=== PATIENT | male | born 1940 | race Caucasian/White ===

== ENCOUNTER 2019-07-09 08:54 | Day surgery (SDC) | payer MEDICARE, OTHER ==
[2019-07-09] MEDS ORDERED: Lactated Ringers 1,000 ML IV ONE (09:29)
--- NOTE | 2019-07-09 09:44 | HP ---
DATE OF SURGERY: 07/09/2019 HISTORY OF PRESENT ILLNESS: The patient is a 79 year-old with last colonoscopy years ago and had some polyps. History of positive Cologuard. No gross bloody stools. No pain or change in bowel movements. Family history I think he said negative for colon cancer if I remember right. PAST MEDICAL HISTORY: History of hyperlipidemia, gout, hypertension and some fatigue in the past. PAST SURGICAL HISTORY: Knee replacement in the past. Melanoma excision. MEDICATIONS: Tamsulosin, Enalapril, Triamterene, hydrochlorothiazide, Nifedipine, Allopurinol, atorvastatin, gabapentin. ALLERGIES: NKDA. FAMILY HISTORY: Negative in regards to this problem. SOCIAL HISTORY: No smoking or alcohol abuse. REVIEW OF SYSTEMS: Fourteen systems reviewed. No chest pain or palpitations. Other systems negative or noncontributory as above and per preadmission questionnaire. PHYSICAL EXAMINATION: GENERAL: No acute distress. HEENT: Sclerae nonicteric. NECK: No JVD. CHEST: Equal excursion, nonlabored breathing. CVS: Regular rate and rhythm. ABDOMEN: Soft. No peritoneal signs. EXTREMITIES: No significant edema. NEURO: Alert, oriented, moving extremities symmetrically. No gross motor deficits noted. RECTAL: Deferred timed to endoscopy exam. IMPRESSION: History of polyp years ago. He is in need of follow up screening colonoscopy. There is a question whether he had a recent positive Cologuard as well. Either way he has not had one in years with polyps in the past. He is in need of screening colonoscopy. The risks and benefits explained in detail but not limited to bleeding or infection, risk of bowel injury or perforation possibly requiring open procedure, risk of missed or nondiagnosis or incomplete exam possibly requiring barium enema, other studies or procedures, general risk of anesthesia or sedation, risk of bowel prep but not limited to, possibility of inability to determine the etiology of what caused his test to be positive. He understands all of the above as well as bowel prep and risk of sedation but not limited to, will proceed with outpatient screening colonoscopy under MAC anesthesia.
[2019-07-09] MEDS ORDERED: Lactated Ringers 1,000 ML IV SCH (10:00)
[2019-07-09] MEDS ORDERED: DIPRIVAN 200 MG/20 ML IV ONE (12:27)
[2019-07-09 13:39] VITALS: O2SAT 98
[2019-07-09 13:56] VITALS: BP 115/61; PULSE 66
--- NOTE | 2019-07-10 09:32 | OP ---
SURGERY DATE/TIME: 07/09/2019 1229 PREOPERATIVE DIAGNOSES: 1) History of polyps. 2) Need for screening colonoscopy. 3) History of positive Cologuard. POSTOPERATIVE DIAGNOSES: 1) Polyps. 2) Diverticulosis. 3) Fair bowel prep. 4) Small internal hemorrhoids. PROCEDURES: 1) Colonoscopy to terminal ileum. 2) Retrograde ileoscopy. 3) Hot biopsy removal of sigmoid colon polyp. 4) Hot biopsy removal of another six small early polyps versus hyperplastic lesion sigmoid colon. 5) Hot biopsy removal of small rectal polyps versus hyperplastic lesion x2. SURGEON: Dr. Jasper Romero. ANESTHESIA: MAC. ESTIMATED BLOOD LOSS: Minimal. INDICATIONS: As noted above. Risks and benefits explained in detail but not limited to and consent obtained. DESCRIPTION OF PROCEDURE AND FINDINGS: The patient is taken to the endoscopy room. MAC anesthesia introduced. After official time out and no disagreement with planned procedure, digital rectal exam did not reveal any rectal masses. Video colonoscope inserted and passed up through the distal left colon, had a little pigs feet cleaner prep. There was a little bit of semisolid liquidy stool in the mid portion proximal colon slightly limiting the exam for very tiny lesions. The scope is slowly and carefully navigated around to the cecum. Appendiceal orifice and valve well visualized. Scope passed up the terminal ileum. Retrograde ileoscopy performed and grossly unremarkable. There was a visible pill sitting in the lumen of the ileum. The scope was then carefully withdrawn over the next 14 minutes. He had diverticulosis in the left colon. There was a small adenomatous appearing polyp removed with hot biopsy forceps in the sigmoid colon. There were about six other tiny early polyps versus hyperplastic lesion removed with hot biopsy forceps with brief bursts of cautery. Good hemostasis noted. Otherwise a couple little small early polyps versus hyperplastic lesion in the rectum removed with hot biopsy forceps. There were no signs of any other large polyps, masses or obstructing lesions. He did have some small internal hemorrhoids. The scope is withdrawn. The patient tolerated the procedure well. There were no immediate complications. Findings will be discussed with the family if available in the waiting room.
== END 2019-07-09 13:55 | disposition home or self-care (01) ==
LOC: SDC 08:54
PROVIDERS: ATTEND Surgery
DX: Z12.11 Encounter for screening for malignant neoplasm of colon (principal); D12.5 Benign neoplasm of sigmoid colon; D12.8 Benign neoplasm of rectum; Z86.010 Personal history of colon polyps; K57.30 Diverticulosis of large intestine without perforation or abscess without bleeding; K64.8 Other hemorrhoids
CPT/HCPCS: 88305; 99100; J2704

== ENCOUNTER 2021-12-18 12:41 | Emergency (ER) | payer MEDICARE, OTHER | END 2021-12-18 13:21 | disposition left against medical advice (07) | LOC: ED 12:41 | DX: Z53.21 Procedure and treatment not carried out due to patient leaving prior to being seen by health care provider (principal) ==

== ENCOUNTER 2022-03-01 08:58 | Emergency (ER) | payer MEDICARE, OTHER ==
--- NOTE | 2022-03-01 09:39 | ERPHSYRPT ---
- History of Present Illness Source: patient Patient Subjective Stated Complaint: HTN onset waking up this morning Triage Nursing Assessment: pt to ED c/o HTN that he noticed this morning. "I take something for it but it doesnt seem to be working anymore." rates 6/10 SAENZ at this time. A&Ox3. ambulatory with no assistance. pt report BP reading 200/100 at home this am. 186/84 on arrival to ED. Physician History: 81 yo wm w increased BP upon awakening this morning. He has a frontal SAENZ which is dull and rated 6/10 on scale. Pt has no focal weakness. Chest pain/nausea/vo miting/dyspnea/fever are all denied. He has a long h/o HTN and is treated by Dr. Mckeon. Pt also complains of chronic L lateral rib pain. Trauma/cough/fever denied. Timing/Duration: today Severity: mild Modifying Factors: Improves With: nothing Associated Symptoms: denies symptoms, headaches Allergies/Adverse Reactions: No Known Drug Allergies Allergy (Verified 03/01/22 09:13) Home Medications: Atorvastatin Calcium [Lipitor] 20 mg PO DAILY 06/28/19 [History] Enalapril Maleate 10 mg [Vasotec 10 MG] 10 mg PO DAILY 06/28/19 [History] Gabapentin [Neurontin] 300 mg PO TID 06/28/19 [History] Nifedipine [Nifedipine ER] 90 mg PO DAILY 06/28/19 [History] Tamsulosin HCl 0.4 mg [Flomax 0.4 MG] 0.4 mg PO DAILY 06/28/19 [History] Triamterene/Hydrochlorothiazid [Triamterene-Hctz 75-50 mg Tab] 1 each PO DAILY 06/28/19 [History] Acetaminophen 500 mg [Tylenol Extra Strength 500 mg] 1,000 mg PO UD PRN 07/09/19 [History] Multivitamin [Multivitamins] 1 each PO DAILY 07/09/19 [History] Thiamine HCl 100 mg [Vitamin B-1 100 mg] 100 mg PO DAILY 07/09/19 [History] Allopurinol 100 mg [Zyloprim 100 mg] 100 mg PO DAILY 03/01/22 [History] Clonidine HCl 0.1 mg [Clonidine 0.1 mg Tablet] 0.1 mg PO BID 03/01/22 [History] Hx Tetanus, Diphtheria Vaccination/Date Given: Yes Hx Influenza Vaccination/Date Given: Yes Hx Pneumococcal Vaccination/Date Given: Yes Immunizations Up to Date: Yes Travel Risk - International Travel Have you traveled outside of the country in past 3 weeks: No - Coronavirus Screening Are you exhibiting any of the following symptoms?: No Close contact with a COVID-19 positive Pt in past 14-21 Days: No - Vaccine Status Have you recieved a Covid-19 vaccination: Yes 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: [employer] - Vaccination Dates Date of 2cond Vaccination (if applicable): 2020 - Review of Systems Constitutional: No Symptoms Eyes: No Symptoms Ears, Nose, & Throat: No Symptoms Respiratory: No Symptoms Cardiac: No Symptoms Abdominal/Gastrointestinal: No Symptoms Genitourinary Symptoms: No Symptoms Musculoskeletal: No Symptoms Skin: No Symptoms Neurological: No Symptoms, Headache Psychological: No Symptoms Endocrine: No Symptoms Hematologic/Lymphatic: No Symptoms Immunological/Allergic: No Symptoms - Past Medical History Pertinent Past Medical History: Yes Neurological History: No Pertinent History ENT History: Other Cardiac History: High Cholesterol, Hypertension, Other Respiratory History: No Pertinent History Endocrine Medical History: No Pertinent History Musculoskeletal History: Arthritis GI Medical History: No Pertinent History History: Other Psycho-Social History: No Pertinent History Male Reproductive Disorders: Prostate Problems Other Medical History: skin CA, sinus problems. hx heart murmur with no diff and not medicated - Past Surgical History Past Surgical History: Yes Neuro Surgical History: No Pertinent History Cardiac: No Pertinent History Respiratory: No Pertinent History Gastrointestinal: No Pertinent History, Hemorrhoidectomy Genitourinary: No Pertinent History Musculoskeletal: Orthopedic Surgery Male Surgical History: No Pertinent History Other Surgical History: emiliano knee replacements, sinus surgery - Social History Smoking Status: Current every day smoker Exposure to second hand smoke: No Drug Use: none Patient Lives Alone: No Significant Family History: no pertinent family hx - Nursing Vital Signs Nursing Vital Signs: Initial Vital Signs Temperature 97.2 F 03/01/22 09:14 Pulse Rate 56 L 03/01/22 09:14 Respiratory Rate 18 03/01/22 09:14 Blood Pressure 186/84 03/01/22 09:14 O2 Sat by Pulse Oximetry 100 03/01/22 09:14 Pain Scale Pain Intensity 6 Hypertensive/Claudio - Physical Exam General Appearance: no apparent distress Eye Exam: PERRL/EOMI, eyes nml inspection Ears, Nose, Throat Exam: normal ENT inspection, TMs normal, pharynx normal, moist mucous membranes Neck Exam: normal inspection, non-tender, supple, full range of motion, No meningismus, No mass, No Brudzinski, No Kernig's, No carotid bruit Respiratory Exam: normal breath sounds, lungs clear, airway intact Cardiovascular Exam: regular rate/rhythm, normal heart sounds, normal peripheral pulses, capillary refill <2 sec, No murmur Gastrointestinal/Abdomen Exam: soft, normal bowel sounds, No tenderness Back Exam: normal inspection, normal range of motion, No CVA tenderness, No vertebral tenderness Extremity Exam: normal inspection, normal range of motion Neurologic Exam: alert, oriented x 3, cooperative, clinical statistics manager II-XII nml as tested, normal mood/affect, nml cerebellar function, nml station & gait, sensation nml Skin Exam: normal color, warm, dry, No rash Lymphatic Exam: No adenopathy SpO2 Interpretation: normal SpO2: 100 O2 Delivery: Room Air - Course Nursing assessment & vital signs reviewed: Yes - CT Exams Chest CT Interpretation: Discussed w/radiologist (CT chest-COPD/Pulmonary fibrosis/8mm gallstone) Head CT Interpretation: Discussed w/radiologist (CT head-pansinusitis/Nothing acute) Ordered Tests: Active Orders 24 hr Category Date Time Status CHEST WITHOUT CONTRAST [CT] Stat Exams 03/01/22 09:37 Completed HEAD WITHOUT CONTRAST [CT] Stat Exams 03/01/22 09:37 Completed CBC W DIFF Stat Lab 03/01/22 10:22 Completed CMP Stat Lab 03/01/22 10:22 Completed TROPONIN Q4H Lab 03/01/22 10:22 Completed TROPONIN Q4H Lab 03/01/22 13:45 Ordered TROPONIN Q4H Lab 03/01/22 17:45 Ordered Medication Summary Discontinued Medications Generic Name Dose Route Start Last Admin Trade Name Freq PRN Reason Stop Dose Admin Ketorolac Tromethamine 15 mg 03/01/22 11:01 Ketorolac Tromethamine 30 Mg/Ml Inj IM 03/01/22 11:02 STAT ONE Lab/Rad Data: Laboratory Result Diagrams 03/01/22 10:22 03/01/22 10:22 Laboratory Results 10/03/01/22 03/01/22 Range/Units 10:22 10: 10: WBC 10.7 H (4.0-10.5) x10^3/uL RBC 4.36 (4.1-5.6) x10^6/uL Hgb 13.8 (12.5-18.0) g/dL Hct 43.4 (42-50) % MCV 99.5 (78-100) fL MCH 31.7 (26-32) pg MCHC 31.8 L (32-36) g/dL RDW 12.4 (11.5-14.0) % Plt Count 201 (150-450) x10^3/uL MPV 9.2 (7.5-11.0) fL Gran % 66.6 H (36.0-66.0) % Immature Gran % (Auto) 0.3 (0.00-0.4) % Nucleat RBC Rel Count 0.0 (0.00-0.1) % Eos # (Auto) 0.28 (0-0.5) x10^3/uL Immature Gran # (Auto) 0.03 (0.00-0.03) x10^3u/L Absolute Lymphs (auto) 2.53 (1.0-4.6) x10^3/uL Absolute Monos (auto) 0.66 (0.0-1.3) x10^3/uL Absolute Nucleated RBC 0.00 (0.00-0.01) x10^3u/L Lymphocytes % 23.7 L (24.0-44.0) % Monocytes % 6.2 (0.0-12.0) % Eosinophils % 2.6 (0.00-5.0) % Basophils % 0.6 (0.0-0.4) % Absolute Granulocytes 7.10 H (1.4-6.9) x10^3/uL Basophils # 0.06 (0-0.4) x10^3/uL Sodium 139 (137-145) mmol/L Potassium 3.9 (3.5-5.1) mmol/L Chloride 105 (98-107) mmol/L Carbon Dioxide 25 (22-30) mmol/L Anion Gap 12.3 (5-15) MEQ/L BUN 16 (9-20) mg/dL Creatinine 1.03 (0.66-1.25) mg/dL Estimated GFR > 60.0 ML/MIN Glucose 125 H (74-106) mg/dL Calcium 8.9 (8.4-10.2) mg/dL Total Bilirubin 0.60 (0.2-1.3) mg/dL AST 25 (17-59) U/L ALT 18 (0-50) U/L Alkaline Phosphatase 79 (38-126) U/L Troponin I < 0.012 (0.000-0.034) ng/mL Serum Total Protein 7.9 (6.3-8.2) g/dL Albumin 4.1 (3.5-5.0) g/dL - Progress Progress: improved Progress Note: 03/01/22 11:02 Pt's BP improved wo treatment 15mg IM Toradol Counseled pt/family regarding: lab results, diagnosis, need for follow-up, rad results - Departure Departure Disposition: Home Clinical Impression: Hypertension, Headache Condition: Stable Critical Care Time: No Referrals: ROMAN MCKEON MD [Primary Care Provider] - Follow up/PCP as directed Instructions: Malignant Hypertension (DC) Additional Instructions: Follow up with Dr. Mckeon in 1-2 days If systolic blood pressure greater than 180(Top number) or diastolic blood pressure greater than 100(bottom number) take an extra Clonidine tablet Return to ER for worsening headache or persistent blood pressure greater than 180/100
--- NOTE | 2022-03-01 10:06 | XRAY ---
Indication: Headache and hypertension. Multiple contiguous axial images obtained through the head without contrast. Comparison: None Age-appropriate global atrophy and moderate periventricular degenerative micro-ischemia bilaterally. No acute intracranial hemorrhage, abnormal extra-axial fluid collection, or mass effect. Fourth ventricle is midline without hydrocephalus. Bony calvarium intact. Near complete opacification of both ethmoid, both frontal, and right sphenoid sinuses with lesser degree of remaining paranasal sinuses. Mastoid air cells are clear. Impression: Nonacute senile brain. Incidental pansinusitis.
--- NOTE | 2022-03-01 10:10 | XRAY ---
Indication: Left chest pain. No known injury. Multiple contiguous axial images obtained through the chest without contrast. Comparison: None Diffuse pulmonary emphysema with moderate scattered fibrosis/scarring and subpleural cystic changes. A few tiny right lung calcified granulomas. No suspicious pulmonary mass, infiltrate, or effusion. Heart not enlarged with scattered coronary calcifications. Aorta is moderately arteriosclerotic without aneurysm. Small mediastinal and bilateral hilar calcified nodes. Small hiatal hernia. Bony thorax intact with osteopenia and mild degenerative changes throughout the spine. Limited upper abdomen demonstrates 8 mm gallstone and splenic calcified granuloma. Impression: 1. Diffuse pulmonary emphysema, scattered pulmonary fibrosis/scarring with subpleural cystic changes, hiatal hernia, chronic bony findings, subcentimeter gallstone, and old granulomatous disease. 2. Remaining CT chest without contrast exam is negative.
[2022-03-01 10:24] LABS: Basophil (Absolute #) 0.06 x10^3/uL (0-0.4); Eosinophil % 2.6 % (0.00-5.0); Eosinophil (Absolute #) 0.28 x10^3/uL (0-0.5); Hematocrit 43.4 % (42-50); Hemoglobin 13.8 g/dL (12.5-18.0); Lymphocyte (Absolute #) 2.53 x10^3/uL (1.0-4.6); Lymphocytes % 23.7 % (24.0-44.0); Mean Cell Volume 99.5 fL (78-100); Mean Corpuscular Hemoglobin 31.7 pg (26-32); Mean Corpuscular Hgb Concent. 31.8 g/dL (32-36); Mean Platelet Volume 9.2 fL (7.5-11.0); Monocyte (Absolute #) 0.66 x10^3/uL (0.0-1.3); Monocytes % 6.2 % (0.0-12.0); Neutrophil % 66.6 % (36.0-66.0); Platelet Count 201 x10^3/uL (150-450); Red Blood Count 4.36 x10^6/uL (4.1-5.6); Red Cell Distribution Width 12.4 % (11.5-14.0); White Blood Count 10.7 x10^3/uL (4.0-10.5)
[2022-03-01 10:41] LABS: ALBUMIN 4.1 g/dL (3.5-5.0); ALKALINE PHOSPHATASE 79 U/L (38-126); ANION GAP 12.3 MEQ/L (5-15); BLOOD UREA NITROGEN 16 mg/dL (9-20); CHLORIDE 105 mmol/L (98-107); Calcium 8.9 mg/dL (8.4-10.2); Carbon Dioxide 25 mmol/L (22-30); Creatinine 1 1.03 mg/dL (0.66-1.25); EST GLOMERULAR FILTRATION RATE > 60.0 ML/MIN; Glucose 125 mg/dL (74-106); Potassium 3.9 mmol/L (3.5-5.1); SGOT/AST 25 U/L (17-59); SGPT/ALT 18 U/L (0-50); SODIUM 139 mmol/L (137-145); Total Protein 7.9 g/dL (6.3-8.2)
[2022-03-01] MEDS ORDERED: TORAdol 30 mg Injection IM ONE (11:01)
[2022-03-01] MEDS ORDERED: TORAdol 30 mg Injection ONE (11:46)
[2022-03-01 11:54] VITALS: BP 155/91; PULSE 49; O2SAT 97
== END 2022-03-01 11:55 | disposition home or self-care (01) ==
LOC: ED 08:58
DX: I10 Essential (primary) hypertension (principal); R51.9 Headache, unspecified; R07.81 Pleurodynia; Z79.899 Other long term (current) drug therapy
CPT/HCPCS: 36415; 70450; 71250; 80053; 84484; 85025; 96372; 99283; J1885

== ENCOUNTER 2022-12-06 16:07 | Inpatient (IN) | payer MEDICARE, OTHER ==
--- NOTE | 2022-12-06 16:12 | ERPHSYRPT ---
- History of Present Illness Time Seen by Provider: 12/06/22 16:12 Source: patient, EMS, old records Exam Limitations: no limitations Physician History: This is an 82-year-old white male patient of Dr. Mckeon and was brought into the emergency department by the paramedics. They provided additional independent information on this patient. In addition, the patient's significant other also provided independent medical history in this patient. Patient was pulled over by the police department because he was swerving in the road. He was confused. They called the paramedics and the paramedics brought him into this department. Patient denies shortness of breath. He denies chest pain. He has no abdominal pain. He has no nausea vomiting or diarrhea. Patient was seen at [facility] in [facility] because his blood pressure was really high. I will review the records from [facility] emergency department when they arrived to our facility via fax. This was approximately 1 week ago. His significant other states that he has not been acting right and was more confused over the last week. In the last 2 to 3 days patient states he has been having some dizzy spells and blurred vision. He also states he has generalized weakness. He has not suffered any acute trauma to the head. There is been no change in his medication. Patient has a history of hypertension, hyperlipidemia, gout and prostate issues. Timing/Duration: week(s) (1) Severity: mild (To moderate) Associated Symptoms: weakness, No nausea, No vomiting, No abdominal pain, No shortness of breath, No chest pain, No fever Allergies/Adverse Reactions: No Known Drug Allergies Allergy (Verified 12/06/22 16:12) Home Medications: Atorvastatin Calcium [Lipitor] 20 mg PO DAILY 06/28/19 [History] Enalapril Maleate 10 mg [Vasotec 10 MG] 10 mg PO DAILY 06/28/19 [History] Gabapentin [Neurontin] 300 mg PO TID 06/28/19 [History] NIFEdipine [Nifedipine ER] 90 mg PO DAILY 06/28/19 [History] Tamsulosin HCl 0.4 mg [Flomax 0.4 MG] 0.4 mg PO DAILY 06/28/19 [History] Triamterene/Hydrochlorothiazid [Triamterene-Hctz 75-50 mg Tab] 1 each PO DAILY 06/28/19 [History] Acetaminophen 500 mg [Tylenol Extra Strength 500 mg] 1,000 mg PO UD PRN 07/09/19 [History] Multivitamin [Multivitamins] 1 each PO DAILY 07/09/19 [History] Thiamine HCl 100 mg [Vitamin B-1 100 mg] 100 mg PO DAILY 07/09/19 [History] Allopurinol 100 mg [Zyloprim 100 mg] 100 mg PO DAILY 03/01/22 [History] Clonidine HCl 0.1 mg [Clonidine 0.1 mg Tablet] 0.1 mg PO BID 03/01/22 [History] Hx Tetanus, Diphtheria Vaccination/Date Given: Yes Hx Influenza Vaccination/Date Given: Yes Hx Pneumococcal Vaccination/Date Given: Yes Travel Risk - International Travel Have you traveled outside of the country in past 3 weeks: No - Coronavirus Screening Are you exhibiting any of the following symptoms?: No Close contact with a COVID-19 positive Pt in past 14-21 Days: No - Vaccine Status Have you recieved a Covid-19 vaccination: Yes [employer]: [employer] - Vaccination Dates Date of 2cond Vaccination (if applicable): 2020 - Review of Systems Constitutional: Weakness Eyes: No Symptoms Ears, Nose, & Throat: No Symptoms Respiratory: No Symptoms Cardiac: No Symptoms Abdominal/Gastrointestinal: No Symptoms Genitourinary Symptoms: No Symptoms Musculoskeletal: No Symptoms Skin: No Symptoms Neurological: Dizziness, Other (More confused per her significant other history) Psychological: No Symptoms Endocrine: No Symptoms Hematologic/Lymphatic: No Symptoms Immunological/Allergic: No Symptoms All Other Systems: Reviewed and Negative - Past Medical History Pertinent Past Medical History: Yes Neurological History: No Pertinent History ENT History: Other Cardiac History: High Cholesterol, Hypertension, Other Respiratory History: No Pertinent History Endocrine Medical History: No Pertinent History Musculoskeletal History: Arthritis GI Medical History: No Pertinent History History: Other Psycho-Social History: No Pertinent History Male Reproductive Disorders: Prostate Problems Other Medical History: skin CA, sinus problems. hx heart murmur with no diff and not medicated - Past Surgical History Past Surgical History: Yes Neuro Surgical History: No Pertinent History Cardiac: No Pertinent History Respiratory: No Pertinent History Gastrointestinal: No Pertinent History, Hemorrhoidectomy Genitourinary: No Pertinent History Musculoskeletal: Orthopedic Surgery Male Surgical History: No Pertinent History Other Surgical History: emiliano knee replacements, sinus surgery - Social History Smoking Status: Current every day smoker Exposure to second hand smoke: No Drug Use: none Patient Lives Alone: No Significant Family History: no pertinent family hx - Nursing Vital Signs Nursing Vital Signs: Initial Vital Signs Temperature 97.6 F 12/06/22 16:13 Pulse Rate 76 12/06/22 16:13 Respiratory Rate 18 12/06/22 16:13 Blood Pressure 119/66 12/06/22 16:13 O2 Sat by Pulse Oximetry 99 12/06/22 16:13 Pain Scale Pain Intensity 0 - Physical Exam General Appearance: no apparent distress, alert, anxiety Eye Exam: PERRL/EOMI, eyes nml inspection Ears, Nose, Throat Exam: normal ENT inspection, moist mucous membranes Neck Exam: normal inspection, non-tender, supple, full range of motion Respiratory Exam: normal breath sounds, lungs clear, airway intact, No chest tenderness, No respiratory distress Cardiovascular Exam: regular rate/rhythm, normal heart sounds, normal peripheral pulses Gastrointestinal/Abdomen Exam: soft, normal bowel sounds, No tenderness Rectal Exam: not done Back Exam: normal inspection, normal range of motion, No CVA tenderness, No vertebral tenderness Extremity Exam: normal inspection, normal range of motion, pelvis stable Neurologic Exam: alert, oriented x 3 (Initially he said it was August but then corrected himself to say it was November 2022), cooperative, deckhand clam dredge II-XII nml as tested, disoriented, confusion, motor weakness (Generalized), other (His confusion is brief and then he corrects himself. Initially he said the present was [place] and then he was asked again. He then stated, did I say Biden?), No facial droop, No slurred speech Skin Exam: normal color, warm, dry Lymphatic Exam: No adenopathy SpO2 Interpretation: normal O2 Delivery: Room Air - Course Nursing assessment & vital signs reviewed: Yes EKG Interpreted by Me: RATE (74), Sinus Rhythm, LAFB, NORMAL INTERVALS, NORMAL QRS, NORMAL ST-T, Other (No acute ischemic changes on today's twelve-lead EKG.) Ordered Tests: Active Orders 24 hr Category Date Time Status Edging Catcher STAT Care 12/06/22 16:22 Active EKG-ER Only STAT Care 12/06/22 16:22 Active IV Insertion STAT Care 12/06/22 16:22 Active NPO (ED) STAT Care 12/06/22 16:22 Active POCT Glucose Check STAT Care 12/06/22 16:22 Active Pulse Oximetry (ED) STAT Care 12/06/22 16:22 Active HEAD WITHOUT CONTRAST [CT] Stat Exams 12/06/22 16:22 Completed CBC W DIFF Stat Lab 12/06/22 16:22 Completed CMP Stat Lab 12/06/22 16:30 Completed ETHYL ALCOHOL Stat Lab 12/06/22 16:26 Completed UA W/RFX UR CULTURE Stat Lab 12/06/22 17:09 Completed Urine Triage Profile Stat Lab 12/06/22 17:09 Completed Medication Summary Generic Name Dose Route Start Last Admin Trade Name Fabq PRN Reason Stop Dose Admin Sodium Chloride 1,000 mls @ 100 mls/hr 12/06/22 16:30 12/06/22 16:32 Sodium Chloride 0.9% 1000 Ml IV 01/05/23 16:29 100 mls/hr .Q10H JEWEL Administration Lab/Rad Data: Laboratory Result Diagrams 12/06/22 16:22 12/06/22 16:30 Laboratory Results 12/06/22 12/06/22 12/06/22 Range/Units 17:09 17:09 16:30 WBC (4.0-10.5) x10^3/uL RBC (4.1-5.6) x10^6/uL Hgb (12.5-18.0) g/dL Hct (42-50) % MCV (78-100) fL MCH (26-32) pg MCHC (32-36) g/dL RDW (11.5-14.0) % Plt Count (150-450) x10^3/uL MPV (7.5-11.0) fL Gran % (36.0-66.0) % Immature Gran % (Auto) (0.00-0.4) % Nucleat RBC Rel Count (0.00-0.1) % Eos # (Auto) (0-0.5) x10^3/uL Immature Gran # (Auto) (0.00-0.03) x10^3u/L Absolute Lymphs (auto) (1.0-4.6) x10^3/uL Absolute Monos (auto) (0.0-1.3) x10^3/uL Absolute Nucleated RBC (0.00-0.01) x10^3u/L Lymphocytes % (24.0-44.0) % Monocytes % (0.0-12.0) % Eosinophils % (0.00-5.0) % Basophils % (0.0-0.4) % Absolute Granulocytes (1.4-6.9) x10^3/uL Basophils # (0-0.4) x10^3/uL Sodium 137 (137-145) mmol/L Potassium 4.8 (3.5-5.1) mmol/L Chloride 105 (98-107) mmol/L Carbon Dioxide 19 L (22-30) mmol/L Anion Gap 17.9 H (5-15) MEQ/L BUN 68 H (9-20) mg/dL Creatinine 3.33 H (0.66-1.25) mg/dL Estimated GFR 19.1 ML/MIN Glucose 105 (74-106) mg/dL Calcium 8.9 (8.4-10.2) mg/dL Total Bilirubin 0.60 (0.2-1.3) mg/dL AST 20 (17-59) U/L ALT 15 (0-50) U/L Alkaline Phosphatase 93 (38-126) U/L Serum Total Protein 7.7 (6.3-8.2) g/dL Albumin 3.8 (3.5-5.0) g/dL Urine Color Yellow (Yellow) Urine Appearance Clear (Clear) Urine pH 5.5 (4.6-8.0) Ur Specific [place] 1.015 (1.005-1.030) Urine Protein Negative (Negative) Urine Glucose (UA) Negative (Negative) mg/dL Urine Ketones Negative (Negative) Urine Blood Negative (Negative) Urine Nitrite Negative (Negative) Urine Bilirubin Negative (Negative) Urine Urobilinogen 1.0 A (0.2) mg/dL Ur Leukocyte Esterase Negative (Negative) U Hyaline Cast (Auto) 3-5 A (0-2) /LPF Urine Microscopic RBC 0-2 (0-5) /HPF Urine Microscopic WBC 0-2 (0-5) /HPF Ur Epithelial Cells None Seen (None Seen) /HPF Urine Bacteria None Seen (None Seen) /HPF Urine Culture Reflexed NO (NO) Urine Opiates Level NEGATIVE (NEGATIVE) Ur Methadone NEGATIVE (NEGATIVE) Urine Barbiturates NEGATIVE (NEGATIVE) Ur Phencyclidine (PCP) NEGATIVE (NEGATIVE) Urine Amphetamine NEGATIVE (NEGATIVE) U Benzodiazepine Level NEGATIVE (NEGATIVE) Urine Cocaine NEGATIVE (NEGATIVE) Urine Marijuana (THC) NEGATIVE (NEGATIVE) Ethyl Alcohol (0-10) mg/dL 12/06/22 12/06/22 Range/Units 16:26 16:22 WBC 15.3 H (4.0-10.5) x10^3/uL RBC 4.15 (4.1-5.6) x10^6/uL Hgb 12.5 (12.5-18.0) g/dL Hct 37.7 L (42-50) % MCV 90.8 (78-100) fL MCH 30.1 (26-32) pg MCHC 33.2 (32-36) g/dL RDW 13.2 (11.5-14.0) % Plt Count 226 (150-450) x10^3/uL MPV 9.0 (7.5-11.0) fL Gran % 70.8 H (36.0-66.0) % Immature Gran % (Auto) 0.5 H (0.00-0.4) % Nucleat RBC Rel Count 0.0 (0.00-0.1) % Eos # (Auto) 0.54 H (0-0.5) x10^3/uL Immature Gran # (Auto) 0.07 H (0.00-0.03) x10^3u/L Absolute Lymphs (auto) 2.89 (1.0-4.6) x10^3/uL Absolute Monos (auto) 0.90 (0.0-1.3) x10^3/uL Absolute Nucleated RBC 0.00 (0.00-0.01) x10^3u/L Lymphocytes % 18.9 L (24.0-44.0) % Monocytes % 5.9 (0.0-12.0) % Eosinophils % 3.5 (0.00-5.0) % Basophils % 0.4 (0.0-0.4) % Absolute Granulocytes 10.80 H (1.4-6.9) x10^3/uL Basophils # 0.06 (0-0.4) x10^3/uL Sodium (137-145) mmol/L Potassium (3.5-5.1) mmol/L Chloride (98-107) mmol/L Carbon Dioxide (22-30) mmol/L Anion Gap (5-15) MEQ/L BUN (9-20) mg/dL Creatinine (0.66-1.25) mg/dL Estimated GFR ML/MIN Glucose (74-106) mg/dL Calcium (8.4-10.2) mg/dL Total Bilirubin (0.2-1.3) mg/dL AST (17-59) U/L ALT (0-50) U/L Alkaline Phosphatase (38-126) U/L Serum Total Protein (6.3-8.2) g/dL Albumin (3.5-5.0) g/dL Urine Color (Yellow) Urine Appearance (Clear) Urine pH (4.6-8.0) Ur Specific [place] (1.005-1.030) Urine Protein (Negative) Urine Glucose (UA) (Negative) mg/dL Urine Ketones (Negative) Urine Blood (Negative) Urine Nitrite (Negative) Urine Bilirubin (Negative) Urine Urobilinogen (0.2) mg/dL Ur Leukocyte Esterase (Negative) U Hyaline Cast (Auto) (0-2) /LPF Urine Microscopic RBC (0-5) /HPF Urine Microscopic WBC (0-5) /HPF Ur Epithelial Cells (None Seen) /HPF Urine Bacteria (None Seen) /HPF Urine Culture Reflexed (NO) Urine Opiates Level (NEGATIVE) Ur Methadone (NEGATIVE) Urine Barbiturates (NEGATIVE) Ur Phencyclidine (PCP) (NEGATIVE) Urine Amphetamine (NEGATIVE) U Benzodiazepine Level (NEGATIVE) Urine Cocaine (NEGATIVE) Urine Marijuana (THC) (NEGATIVE) Ethyl Alcohol < 10 (0-10) mg/dL - Progress Progress: unchanged Progress Note: 12/06/22 16:59 CT scan of the head without contrast shows a nonacute, senile brain 12/06/22 18:52 This patient's medical issue is at least moderate complexity and may require him to be placed in observation at a minimum. This would increase the complexity to high. I believe the patient's issue is likely metabolic. Patient had a greater than 60 GFR in February 2022. Today's GFR is 19. His clinical exam is nonfocal. Although he is somewhat confused and having hallucinations. It has been going on for a while. I did review the [facility] emergency department chart from 11/19/2022. His CT scan at that time was also nonacute. I think the patient should undergo a telemetry neuro consultation. We will follow those recommendations and then contact telehospitalist if it is felt the patient can be placed in observation/admitted into our facility. 12/06/22 19:[address] Dias who is the teleneurologist prior to his evaluation of the patient. I reviewed the patient past medical history, history of present illness and physical findings. In addition I spoke with him on the results of my work-up. After his evaluation of the patient, Dr. Dias recommends that this patient have a brain MRI without contrast as well as PT/OT to perform dementia evaluation scale. He feels the patient may have some dementia as well as metabolic encephalopathy. I spoke in detail with the patient and the patient's significant other regarding admitting the patient into our facility or transferring the patient to another facility of choice. Patient is adamant that he does not want to be admitted into the hospital or transferred out. I provided him the risk and benefits of being admitted into a facility or transferred to another facility as well as the risks of going home to perform this testing as an outpatient. The patient's significant other and the patient, in my view, have an understanding of why it is important to come into the hospital. Patient states that he will sign AGAINST MEDICAL ADVICE form and follow-up with his primary care doctor tomorrow, 12/07/2022. He was told to return to the emergency department if symptoms worsen. Counseled pt/family regarding: lab results, diagnosis, need for follow-up, rad results Medical Desision Making - Independent Historian Additional History obtained from: Relative/friend - Discussion of managment Care discussed with:: specialist (Teleneurologist) Reviewed:: Test results, Need for additional workup Agreed on:: Treatment plan - Diagnostic Testing Diagnostic test were ordered, analyzed, and reviewed by me: Yes Radiological Interpretation: Reviewed by me, Teleradiologist Report - Risk of complications The pt has a high risk of morbidity or mortality based on: Decision regarding hospitilization or escalation of hosp level of care - Departure Departure Disposition: AMA Clinical Impression: Metabolic encephalopathy, Renal failure, Dementia Condition: Stable Critical Care Time: No Referrals: ROMAN MCKEON MD [Primary Care Provider] - Follow up/PCP as directed Additional Instructions: Call your primary care provider on 12/07/2022, morning to make arrangements for follow-up appointment and to schedule a brain MRI without contrast as well as schedule an evaluation/testing for dementia. Drink plenty of fluids. Take your medication as prescribed. Return to the emergency department if symptoms worsen.
[2022-12-06 16:29] LABS: BASOPHIL % 0.4 % (0.0-0.4); Basophil (Absolute #) 0.06 x10^3/uL (0-0.4); Eosinophil % 3.5 % (0.00-5.0); Eosinophil (Absolute #) 0.54 x10^3/uL (0-0.5); Hematocrit 37.7 % (42-50); Hemoglobin 12.5 g/dL (12.5-18.0); IMMATURE GRAN # 0.07 x10^3u/L (0.00-0.03); IMMATURE GRAN % 0.5 % (0.00-0.4); Lymphocyte (Absolute #) 2.89 x10^3/uL (1.0-4.6); Lymphocytes % 18.9 % (24.0-44.0); Mean Cell Volume 90.8 fL (78-100); Mean Corpuscular Hemoglobin 30.1 pg (26-32); Mean Corpuscular Hgb Concent. 33.2 g/dL (32-36); Monocytes % 5.9 % (0.0-12.0); Neutrophil % 70.8 % (36.0-66.0); Platelet Count 226 x10^3/uL (150-450); Red Blood Count 4.15 x10^6/uL (4.1-5.6); Red Cell Distribution Width 13.2 % (11.5-14.0); White Blood Count 15.3 x10^3/uL (4.0-10.5)
[2022-12-06] MEDS: Sodium Chloride 0.9% 1000 ML 1,000 ML IV SCH (16:32)
[2022-12-06 16:42] LABS: ALBUMIN 3.8 g/dL (3.5-5.0); ANION GAP 17.9 MEQ/L (5-15); BILIRUBIN,TOTAL 0.6 mg/dL (0.2-1.3); Calcium 8.9 mg/dL (8.4-10.2); Creatinine 1 3.33 mg/dL (0.66-1.25); EST GLOMERULAR FILTRATION RATE 19.1 ML/MIN; Potassium 4.8 mmol/L (3.5-5.1); Total Protein 7.7 g/dL (6.3-8.2)
--- NOTE | 2022-12-06 16:51 | XRAY ---
Indication: Altered mental status. Weakness. Blurred vision. Multiple contiguous axial images obtained through the head without contrast. Comparison: March 01, 2022 Again age-appropriate global atrophy and moderate periventricular degenerative micro-ischemia bilaterally. No acute intracranial hemorrhage, abnormal extra-axial fluid collection, or mass effect. Fourth ventricle is midline without hydrocephalus. Bony calvarium intact. Visualized paranasal sinuses and mastoid air cells are clear. Impression: Again nonacute senile brain.
[2022-12-06 18:35] LABS: Amphetamine,Urine NEGATIVE (NEGATIVE); Barbiturate,Urine NEGATIVE (NEGATIVE); Benzodiazepine,Urine NEGATIVE (NEGATIVE); Cocaine,Urine NEGATIVE (NEGATIVE); Methadone,Urine NEGATIVE (NEGATIVE); Opiate,Urine NEGATIVE (NEGATIVE); PCP,Urine NEGATIVE (NEGATIVE); THC,Urine NEGATIVE (NEGATIVE)
[2022-12-06 18:36] LABS: Appearance Clear (Clear); Bacteria None Seen /HPF (None Seen); Bilirubin Negative (Negative); Blood Negative (Negative); Epithelial Cells None Seen /HPF (None Seen); Glucose, Urine Negative (Negative); Ketones Negative (Negative); Leukocyte Esterase Negative (Negative); Nitrite Negative (Negative); Ph 5.5 (4.6-8.0); Protein,Urine Dip Negative (Negative); RBC 0-2 /HPF (0-5); Specific Gravity 1.015 (1.005-1.030); WBC 0-2 /HPF (0-5)
[2022-12-06 18:37] LABS: ADD URINE CULTURE? NO (NO)
[2022-12-06] MEDS ORDERED: TYLENOL 325 MG PO PRN (20:40)
[2022-12-06] MEDS ORDERED: Zofran 4 MG/2 ML VIAL IV PRN (20:40)
[2022-12-06] MEDS ORDERED: HUMULIN R SQ PRN (20:40)
--- NOTE | 2022-12-06 23:21 | PCM.HP ---
History of Present Illness - Chief Complaint Chief Complaint: CHENTE, eratic driving, pulled over by police. History of Present Illness: is a 82 year old male with past medical history of HTN, HLP, Gout presented to ER due to erratic driving and AMS. His girlfriend is present and reports that pt started losing his appetite 2 weeks ago. Then she noticed some confusion, strange behaviors 1.5 weeks ago. He went to [facility] for this and a CT head was negative - but no blood work or anything else was done. On the way to the ER today, he was pulled over by the police for erratic driving. He was then brought here. In ER, work-up fairly benign for any infectious causes, but chemistry revealed CHENTE - BUN 60s, Cr 3.3. In 2021, his renal function was normal. His girlfriend, Angelic, says he went to his doctor 1 month ago but does not recall any kidney issue. He denies nausea, vomiting. Had diarrhea today. But poor intake for 2 weeks. No SOB, chest pain, fever, chills, dysuria, hematuria, flank pain, syncope, falls - Review of Systems All Other Systems: Reviewed and Negative (As in HPI) Medications & Allergies Home Medications: Home Medication List Atorvastatin Calcium [Lipitor] 20 mg PO DAILY 06/28/19 [History Confirmed 03/01/22] Enalapril Maleate 10 mg [Vasotec 10 MG] 10 mg PO DAILY 06/28/19 [History Confirmed 03/01/22] Gabapentin [Neurontin] 300 mg PO TID 06/28/19 [History Confirmed 03/01/22] NIFEdipine [Nifedipine ER] 90 mg PO DAILY 06/28/19 [History Confirmed 03/01/22] Tamsulosin HCl 0.4 mg [Flomax 0.4 MG] 0.4 mg PO DAILY 06/28/19 [History Confirmed 03/01/22] Triamterene/Hydrochlorothiazid [Triamterene-Hctz 75-50 mg Tab] 1 each PO DAILY 06/28/19 [History Confirmed 03/01/22] Acetaminophen 500 mg [Tylenol Extra Strength 500 mg] 1,000 mg PO UD PRN 07/09/19 [History Confirmed 03/01/22] Multivitamin [Multivitamins] 1 each PO DAILY 07/09/19 [History Confirmed 03/01/22] Thiamine HCl 100 mg [Vitamin B-1 100 mg] 100 mg PO DAILY 07/09/19 [History Confirmed 03/01/22] Allopurinol 100 mg [Zyloprim 100 mg] 100 mg PO DAILY 03/01/22 [History Confirmed 03/01/22] Clonidine HCl 0.1 mg [Clonidine 0.1 mg Tablet] 0.1 mg PO BID 03/01/22 [Histor y Confirmed 03/01/22] Allergies/Adverse Reactions: Allergies Allergy/AdvReac Type Severity Reaction Status Date / Time No Known Drug Allergies Allergy Verified 12/06/22 16:12 - Past Medical History Past Medical History: Yes Neurological History: Migraines, Seizures ENT History: Cataracts Cardiac History: Hypertension Respiratory History: No Pertinent History Endocrine Medical History: No Pertinent History Musculoskelatal History: Arthritis GI Medical History: GERD, GI Bleed, Hemorrhoids History: No Pertinent History Pyscho-Social History: Depression Male Reproductive Disorders: No Pertinent History Comment: skin CA, sinus problems. hx heart murmur with no diff and not medicated - Past Surgical History Past Surgical History: Yes Neuro Surgical History: No Pertinent History Cardiac History: No Pertinent History Respiratory Surgery: No Pertinent History GI Surgical History: No Pertinent History Genitourinary Surgical Hx: No Pertinent History Musculskeletal Surgical Hx: Joint Replacement Male Surgical History: No Pertinent History Other Surgical History: emiliano knee replacements, sinus surgery - Social History Smoking Status: Current every day smoker How long have you smoked: 40 years Exposure to second hand smoke: No Alcohol: Rarely Drug Use: none Significant Family History: no pertinent family hx - Physical Exam Vital Signs: Vital Signs - 24 hr Temp Pulse Resp BP BP Pulse Ox 12/06/22 21:34 97.3 F 61 16 115/56 94 L 12/06/22 20:00 71 14 95/79 98 12/06/22 19:02 65 16 137/60 99 12/06/22 19:00 78 15 137/60 97 12/06/22 18:24 61 15 104/49 98 12/06/22 18:00 66 18 104/49 95 12/06/22 17:28 61 16 97 12/06/22 16:26 98 07/24/23 16:13 97.6 F 60 6 L 119/66 119/66 93 L General Appearance: no apparent distress Neurologic Exam: alert, oriented x 3, cooperative, normal mood/affect Eye Exam: PERRL/EOMI Ears, Nose, Throat Exam: normal ENT inspection Neck Exam: normal inspection, supple Respiratory Exam: normal breath sounds Cardiovascular Exam: regular rate/rhythm, normal heart sounds Gastrointestinal/Abdomen Exam: soft, normal bowel sounds Rectal Exam: deferred Extremity Exam: normal inspection Skin Exam: normal color, warm, dry Results - Labs Lab/Micro Results: Lab Results-Last 24 Hours 12/06/22 12/06/22 12/06/22 Range/Units 16:22 16:22 16:26 WBC 15.3 H (4.0-10.5) x10^3/uL RBC 4.15 (4.1-5.6) x10^6/uL Hgb 12.5 (12.5-18.0) g/dL Hct 37.7 L (42-50) % MCV 90.8 (78-100) fL MCH 30.1 (26-32) pg MCHC 33.2 (32-36) g/dL RDW 13.2 (11.5-14.0) % Plt Count 226 (150-450) x10^3/uL MPV 9.0 (7.5-11.0) fL Gran % 70.8 H (36.0-66.0) % Immature Gran % (Auto) 0.5 H (0.00-0.4) % Nucleat RBC Rel Count 0.0 (0.00-0.1) % Eos # (Auto) 0.54 H (0-0.5) x10^3/uL Immature Gran # (Auto) 0.07 H (0.00-0.03) x10^3u/L Absolute Lymphs (auto) 2.89 (1.0-4.6) x10^3/uL Absolute Monos (auto) 0.90 (0.0-1.3) x10^3/uL Absolute Nucleated RBC 0.00 (0.00-0.01) x10^3u/L Lymphocytes % 18.9 L (24.0-44.0) % Monocytes % 5.9 (0.0-12.0) % Eosinophils % 3.5 (0.00-5.0) % Basophils % 0.4 (0.0-0.4) % Absolute Granulocytes 10.80 H (1.4-6.9) x10^3/uL Basophils # 0.06 (0-0.4) x10^3/uL Sodium (137-145) mmol/L Potassium (3.5-5.1) mmol/L Chloride (98-107) mmol/L Carbon Dioxide (22-30) mmol/L Anion Gap (5-15) MEQ/L BUN (9-20) mg/dL Creatinine (0.66-1.25) mg/dL Estimated GFR ML/MIN Glucose (74-106) mg/dL Calcium (8.4-10.2) mg/dL Total Bilirubin (0.2-1.3) mg/dL AST (17-59) U/L ALT (0-50) U/L Alkaline Phosphatase (38-126) U/L Creatine Kinase 57 (55-170) U/L Serum Total Protein (6.3-8.2) g/dL Albumin (3.5-5.0) g/dL Urine Color (Yellow) Urine Appearance (Clear) Urine pH (4.6-8.0) Ur Specific [place] (1.005-1.030) Urine Protein (Negative) Urine Glucose (UA) (Negative) mg/dL Urine Ketones (Negative) Urine Blood (Negative) Urine Nitrite (Negative) Urine Bilirubin (Negative) Urine Urobilinogen (0.2) mg/dL Ur Leukocyte Esterase (Negative) U Hyaline Cast (Auto) (0-2) /LPF Urine Microscopic RBC (0-5) /HPF Urine Microscopic WBC (0-5) /HPF Ur Epithelial Cells (None Seen) /HPF Urine Bacteria (None Seen) /HPF Urine Culture Reflexed (NO) Urine Opiates Level (NEGATIVE) Ur Methadone (NEGATIVE) Urine Barbiturates (NEGATIVE) Ur Phencyclidine (PCP) (NEGATIVE) Urine Amphetamine (NEGATIVE) U Benzodiazepine Level (NEGATIVE) Urine Cocaine (NEGATIVE) Urine Marijuana (THC) (NEGATIVE) Ethyl Alcohol < 10 (0-10) mg/dL 12/06/22 12/06/22 12/06/22 Range/Units 16:30 17:09 17:09 WBC (4.0-10.5) x10^3/uL RBC (4.1-5.6) x10^6/uL Hgb (12.5-18.0) g/dL Hct (42-50) % MCV (78-100) fL MCH (26-32) pg MCHC (32-36) g/dL RDW (11.5-14.0) % Plt Count (150-450) x10^3/uL MPV (7.5-11.0) fL Gran % (36.0-66.0) % Immature Gran % (Auto) (0.00-0.4) % Nucleat RBC Rel Count (0.00-0.1) % Eos # (Auto) (0-0.5) x10^3/uL Immature Gran # (Auto) (0.00-0.03) x10^3u/L Absolute Lymphs (auto) (1.0-4.6) x10^3/uL Absolute Monos (auto) (0.0-1.3) x10^3/uL Absolute Nucleated RBC (0.00-0.01) x10^3u/L Lymphocytes % (24.0-44.0) % Monocytes % (0.0-12.0) % Eosinophils % (0.00-5.0) % Basophils % (0.0-0.4) % Absolute Granulocytes (1.4-6.9) x10^3/uL Basophils # (0-0.4) x10^3/uL Sodium 137 (137-145) mmol/L Potassium 4.8 (3.5-5.1) mmol/L Chloride 105 (98-107) mmol/L Carbon Dioxide 19 L (22-30) mmol/L Anion Gap 17.9 H (5-15) MEQ/L BUN 68 H (9-20) mg/dL Creatinine 3.33 H (0.66-1.25) mg/dL Estimated GFR 19.1 ML/MIN Glucose 105 (74-106) mg/dL Calcium 8.9 (8.4-10.2) mg/dL Total Bilirubin 0.60 (0.2-1.3) mg/dL AST 20 (17-59) U/L ALT 15 (0-50) U/L Alkaline Phosphatase 93 (38-126) U/L Creatine Kinase (55-170) U/L Serum Total Protein 7.7 (6.3-8.2) g/dL Albumin 3.8 (3.5-5.0) g/dL Urine Color Yellow (Yellow) Urine Appearance Clear (Clear) Urine pH 5.5 (4.6-8.0) Ur Specific [place] 1.015 (1.005-1.030) Urine Protein Negative (Negative) Urine Glucose (UA) Negative (Negative) mg/dL Urine Ketones Negative (Negative) Urine Blood Negative (Negative) Urine Nitrite Negative (Negative) Urine Bilirubin Negative (Negative) Urine Urobilinogen 1.0 A (0.2) mg/dL Ur Leukocyte Esterase Negative (Negative) U Hyaline Cast (Auto) 3-5 A (0-2) /LPF Urine Microscopic RBC 0-2 (0-5) /HPF Urine Microscopic WBC 0-2 (0-5) /HPF Ur Epithelial Cells None Seen (None Seen) /HPF Urine Bacteria None Seen (None Seen) /HPF Urine Culture Reflexed NO (NO) Urine Opiates Level NEGATIVE (NEGATIVE) Ur Methadone NEGATIVE (NEGATIVE) Urine Barbiturates NEGATIVE (NEGATIVE) Ur Phencyclidine (PCP) NEGATIVE (NEGATIVE) Urine Amphetamine NEGATIVE (NEGATIVE) U Benzodiazepine Level NEGATIVE (NEGATIVE) Urine Cocaine NEGATIVE (NEGATIVE) Urine Marijuana (THC) NEGATIVE (NEGATIVE) Ethyl Alcohol (0-10) mg/dL Accuchecks Date 12/06/22 Time 16:28 - Radiology Impressions Radiology Exams & Impressions: Radiology Procedures Category Date Time Status HEAD WITHOUT CONTRAST [CT] Stat Exams 12/06/22 16:22 Completed MRI BRAIN W/O CONTRAST [MRI] Routine Exams 12/06/22 20:40 Ordered Ultrasound Kidney [KIDNEY] [US] Urgent Exams 12/06/22 20:40 Ordered - Other Procedures and Tests Respiratory Therapy 12/06/22 22:44 Smoking Cessation Education ONCE Assessment/Plan (1) CHENTE (acute kidney injury) Current Visit: Yes Status: Acute Assessment & Plan: BUN 68, Cr 3.3. K is normal. No fluid overload. I was told in 2021, his Cr was normal. This could be CHENTE from dehydration due to loss of appetite x 2 weeks, and diarrhea today. But unfortunately, uremia can cause these very same symptoms. We will work from the CHENTE standpoint. IVF started, kidney US ordered. CK is pending. UA is unremarkable. Would hold all BP meds - but especially ACEI/ARB, diuretic for now. BP low normal. 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 Dose all meds accordingly. Avoid NSAIDs, IV contrast, prolonged hypotension. Pt and his significant other do not recall his med list and pharmacy is closed. He is on BP meds, statin, and that is all they can remember Code(s): N17.9 - ACUTE KIDNEY FAILURE, UNSPECIFIED (2) Metabolic encephalopathy Current Visit: Yes Status: Acute Assessment & Plan: AMS - could be due to uremia from CHENTE. Treating CHENTE and monitor progress. Once all acute causes ruled out and treated, and he remains confused, this is possibly dementia. Etoh, UDS negative. UA and CXR clear. Na normal. Calcium normal. BS normal Code(s): G93.41 - METABOLIC ENCEPHALOPATHY (3) Leukocytosis Current Visit: Yes Status: Acute Assessment & Plan: Stress response as no obvious infectious cause identified. Monitor Code(s): D72.829 - ELEVATED WHITE BLOOD CELL COUNT, UNSPECIFIED (4) Hypertension Current Visit: No Status: Acute Assessment & Plan: BP low normal. He is dehydrated. Holding BP meds. Code(s): I10 - ESSENTIAL (PRIMARY) HYPERTENSION (5) Gout Current Visit: Yes Status: Acute Assessment & Plan: No acute issue for now. Monitor Code(s): M10.9 - GOUT, UNSPECIFIED (6) Hyperlipidemia Current Visit: Yes Status: Acute Assessment & Plan: He is on a statin. We can resume this Code(s): E78.5 - HYPERLIPIDEMIA, UNSPECIFIED Telemedicine Encounter - Telemedicine Encounter Telemedicine Encounter: The entirety of this encounter was performed via Telemedicine" The pt and his girlfriend gave me verbal consent to have this telemedicine visit
[2022-12-07 04:51] LABS: Absolute Neutrophil Ct (ANC) 11.24 x10^3/uL (1.4-6.9); BASOPHIL % 0.4 % (0.0-0.4); Basophil (Absolute #) 0.06 x10^3/uL (0-0.4); Eosinophil % 2.8 % (0.00-5.0); Eosinophil (Absolute #) 0.42 x10^3/uL (0-0.5); Hematocrit 43.6 % (42-50); Hemoglobin 14.1 g/dL (12.5-18.0); IMMATURE GRAN # 0.07 x10^3u/L (0.00-0.03); IMMATURE GRAN % 0.5 % (0.00-0.4); Lymphocyte (Absolute #) 2.69 x10^3/uL (1.0-4.6); Lymphocytes % 17.8 % (24.0-44.0); Mean Cell Volume 91.8 fL (78-100); Mean Corpuscular Hemoglobin 29.7 pg (26-32); Mean Corpuscular Hgb Concent. 32.3 g/dL (32-36); Mean Platelet Volume 9.1 fL (7.5-11.0); Monocyte (Absolute #) 0.65 x10^3/uL (0.0-1.3); Monocytes % 4.3 % (0.0-12.0); Neutrophil % 74.2 % (36.0-66.0); Platelet Count 258 x10^3/uL (150-450); Red Blood Count 4.75 x10^6/uL (4.1-5.6); Red Cell Distribution Width 13.2 % (11.5-14.0); White Blood Count 15.1 x10^3/uL (4.0-10.5)
[2022-12-07 05:07] LABS: ALBUMIN 4.1 g/dL (3.5-5.0); ANION GAP 16.3 MEQ/L (5-15); BILIRUBIN,TOTAL 0.8 mg/dL (0.2-1.3); Calcium 9.6 mg/dL (8.4-10.2); Creatinine 1 2.55 mg/dL (0.66-1.25); EST GLOMERULAR FILTRATION RATE 25.9 ML/MIN; Potassium 4.1 mmol/L (3.5-5.1); Total Protein 8.4 g/dL (6.3-8.2)
[2022-12-07] MEDS ORDERED: Ativan 2 MG/1 ML VIAL ONE (06:12)
[2022-12-07] MEDS ORDERED: Ativan 2 MG/1 ML VIAL IV ONE ×2 (06:25→10:46)
[2022-12-07] MEDS: Sodium Chloride 0.9% 1000 ML 1,000 ML IV SCH ×6 (07:28→21:52)
[2022-12-07] MEDS: ENOXAPARIN SODIUM SQ SCH (09:57)
[2022-12-07] MEDS: Nicoderm CQ 21 MG TOP SCH (10:05)
--- NOTE | 2022-12-07 11:49 | XRAY ---
Indication: Renal failure. Two-dimensional renal sonogram performed. Comparison: None Right kidney measures 9.2 x 3.7 x 4.0 sonometer and left measures 9.8 x 4.5 x 4.0 cm. Normal perfusion bilaterally. Right upper kidney demonstrates 8 mm cortical cyst. No other focal solid/cystic renal mass or hydronephrosis. Cortical medullary differentiation preserved. Enlarged prostate gland impresses on the urinary bladder. Remaining urinary bladder grossly unremarkable. Ureteral jets not seen within the allotted exam time. Incidental 1.8 cm gallstone. Impression: Tiny right renal cyst, enlarged prostate gland, and cholelithiasis. Remaining renal sonogram is negative.
--- NOTE | 2022-12-07 14:07 | PCM.NOTE ---
Date and Time: 12/07/22 1401 Subjective Assessment: Patient has demonstrated intermittent agitation requiring doses of Ativan. During my interview after a recent Ativan dose, the patient was calm and cooperative. Denies any localizing symptoms. Oriented x1 (name) but follows commands. 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, intake rn II-XII nml as tested, normal mood/affect, nml cerebellar function, other (oriented x1 (name only)) Skin Exam: normal color Eye Exam: PERRL, EOMI, eyes nml inspection Ears, Nose, Throat Exam: normal ENT inspection Neck Exam: normal inspection, full range of motion Respiratory Exam: normal breath sounds, lungs clear Cardiovascular Exam: regular rate/rhythm, normal heart sounds Gastrointestinal/Abdomen Exam: soft, normal bowel sounds Extremity Exam: normal inspection, normal range of motion Back Exam: normal range of motion OBJECTIVE DATA Vital Signs: Vital Signs - 24 hr Temp Pulse Resp BP BP Pulse Ox 12/07/22 11:56 97.5 F 84 17 142/67 94 L 12/07/22 08:00 97.5 F 69 17 128/58 95 12/07/22 04:00 97.3 F 86 16 140/63 91 L 12/06/22 21:34 97.3 F 61 16 115/56 94 L 12/06/22 20:00 71 14 95/79 98 12/06/22 19:02 65 16 137/60 99 12/06/22 19:00 78 15 137/60 97 12/06/22 18:24 61 15 104/49 98 12/06/22 18:00 66 18 104/49 95 12/06/22 17:28 61 16 97 12/06/22 16:26 98 12/06/22 16:13 97.6 F 60 6 L 119/66 119/66 93 L Pain Assessment - Last Documented Pain Intensity 0 Intake and Output: Intake & Output 12/05/22 12/06/22 12/07/22 12/08/22 11:59 11:59 11:59 11:59 Intake Total 240 240 Output Total 450 Balance -210 240 Weight 70.9 kg Lab Results: Lab Results-Last 24 Hours 12/06/22 12/06/22 12/06/22 Range/Units 16:22 16:22 16:26 WBC 15.3 H (4.0-10.5) x10^3/uL RBC 4.15 (4.1-5.6) x10^6/uL Hgb 12.5 (12.5-18.0) g/dL Hct 37.7 L (42-50) % MCV 90.8 (78-100) fL MCH 30.1 (26-32) pg MCHC 33.2 (32-36) g/dL RDW 13.2 (11.5-14.0) % Plt Count 226 (150-450) x10^3/uL MPV 9.0 (7.5-11.0) fL Gran % 70.8 H (36.0-66.0) % Immature Gran % (Auto) 0.5 H (0.00-0.4) % Nucleat RBC Rel Count 0.0 (0.00-0.1) % Eos # (Auto) 0.54 H (0-0.5) x10^3/uL Immature Gran # (Auto) 0.07 H (0.00-0.03) x10^3u/L Absolute Lymphs (auto) 2.89 (1.0-4.6) x10^3/uL Absolute Monos (auto) 0.90 (0.0-1.3) x10^3/uL Absolute Nucleated RBC 0.00 (0.00-0.01) x10^3u/L Lymphocytes % 18.9 L (24.0-44.0) % Monocytes % 5.9 (0.0-12.0) % Eosinophils % 3.5 (0.00-5.0) % Basophils % 0.4 (0.0-0.4) % Absolute Granulocytes 10.80 H (1.4-6.9) x10^3/uL Basophils # 0.06 (0-0.4) x10^3/uL Sodium (137-145) mmol/L Potassium (3.5-5.1) mmol/L Chloride (98-107) mmol/L Carbon Dioxide (22-30) mmol/L Anion Gap (5-15) MEQ/L BUN (9-20) mg/dL Creatinine (0.66-1.25) mg/dL Estimated GFR ML/MIN Glucose (74-106) mg/dL Calcium (8.4-10.2) mg/dL Total Bilirubin (0.2-1.3) mg/dL AST (17-59) U/L ALT (0-50) U/L Alkaline Phosphatase (38-126) U/L Creatine Kinase 57 (55-170) U/L Serum Total Protein (6.3-8.2) g/dL Albumin (3.5-5.0) g/dL Urine Color (Yellow) Urine Appearance (Clear) Urine pH (4.6-8.0) Ur Specific [place] (1.005-1.030) Urine Protein (Negative) Urine Glucose (UA) (Negative) mg/dL Urine Ketones (Negative) Urine Blood (Negative) Urine Nitrite (Negative) Urine Bilirubin (Negative) Urine Urobilinogen (0.2) mg/dL Ur Leukocyte Esterase (Negative) U Hyaline Cast (Auto) (0-2) /LPF Urine Microscopic RBC (0-5) /HPF Urine Microscopic WBC (0-5) /HPF Ur Epithelial Cells (None Seen) /HPF Urine Bacteria (None Seen) /HPF Urine Culture Reflexed (NO) Urine Opiates Level (NEGATIVE) Ur Methadone (NEGATIVE) Urine Barbiturates (NEGATIVE) Ur Phencyclidine (PCP) (NEGATIVE) Urine Amphetamine (NEGATIVE) U Benzodiazepine Level (NEGATIVE) Urine Cocaine (NEGATIVE) Urine Marijuana (THC) (NEGATIVE) Ethyl Alcohol < 10 (0-10) mg/dL 12/06/22 12/06/22 12/06/22 Range/Units 16:30 17:09 17:09 WBC (4.0-10.5) x10^3/uL RBC (4.1-5.6) x10^6/uL Hgb (12.5-18.0) g/dL Hct (42-50) % MCV (78-100) fL MCH (26-32) pg MCHC (32-36) g/dL RDW (11.5-14.0) % Plt Count (150-450) x10^3/uL MPV (7.5-11.0) fL Gran % (36.0-66.0) % Immature Gran % (Auto) (0.00-0.4) % Nucleat RBC Rel Count (0.00-0.1) % Eos # (Auto) (0-0.5) x10^3/uL Immature Gran # (Auto) (0.00-0.03) x10^3u/L Absolute Lymphs (auto) (1.0-4.6) x10^3/uL Absolute Monos (auto) (0.0-1.3) x10^3/uL Absolute Nucleated RBC (0.00-0.01) x10^3u/L Lymphocytes % (24.0-44.0) % Monocytes % (0.0-12.0) % Eosinophils % (0.00-5.0) % Basophils % (0.0-0.4) % Absolute Granulocytes (1.4-6.9) x10^3/uL Basophils # (0-0.4) x10^3/uL Sodium 137 (137-145) mmol/L Potassium 4.8 (3.5-5.1) mmol/L Chloride 105 (98-107) mmol/L Carbon Dioxide 19 L (22-30) mmol/L Anion Gap 17.9 H (5-15) MEQ/L BUN 68 H (9-20) mg/dL Creatinine 3.33 H (0.66-1.25) mg/dL Estimated GFR 19.1 ML/MIN Glucose 105 (74-106) mg/dL Calcium 8.9 (8.4-10.2) mg/dL Total Bilirubin 0.60 (0.2-1.3) mg/dL AST 20 (17-59) U/L ALT 15 (0-50) U/L Alkaline Phosphatase 93 (38-126) U/L Creatine Kinase (55-170) U/L Serum Total Protein 7.7 (6.3-8.2) g/dL Albumin 3.8 (3.5-5.0) g/dL Urine Color Yellow (Yellow) Urine Appearance Clear (Clear) Urine pH 5.5 (4.6-8.0) Ur Specific [place] 1.015 (1.005-1.030) Urine Protein Negative (Negative) Urine Glucose (UA) Negative (Negative) mg/dL Urine Ketones Negative (Negative) Urine Blood Negative (Negative) Urine Nitrite Negative (Negative) Urine Bilirubin Negative (Negative) Urine Urobilinogen 1.0 A (0.2) mg/dL Ur Leukocyte Esterase Negative (Negative) U Hyaline Cast (Auto) 3-5 A (0-2) /LPF Urine Microscopic RBC 0-2 (0-5) /HPF Urine Microscopic WBC 0-2 (0-5) /HPF Ur Epithelial Cells None Seen (None Seen) /HPF Urine Bacteria None Seen (None Seen) /HPF Urine Culture Reflexed NO (NO) Urine Opiates Level NEGATIVE (NEGATIVE) Ur Methadone NEGATIVE (NEGATIVE) Urine Barbiturates NEGATIVE (NEGATIVE) Ur Phencyclidine (PCP) NEGATIVE (NEGATIVE) Urine Amphetamine NEGATIVE (NEGATIVE) U Benzodiazepine Level NEGATIVE (NEGATIVE) Urine Cocaine NEGATIVE (NEGATIVE) Urine Marijuana (THC) NEGATIVE (NEGATIVE) Ethyl Alcohol (0-10) mg/dL 12/07/22 12/07/22 Range/Units 04:33 04:33 WBC 15.1 H (4.0-10.5) x10^3/uL RBC 4.75 (4.1-5.6) x10^6/uL Hgb 14.1 (12.5-18.0) g/dL Hct 43.6 (42-50) % MCV 91.8 (78-100) fL MCH 29.7 (26-32) pg MCHC 32.3 (32-36) g/dL RDW 13.2 (11.5-14.0) % Plt Count 258 (150-450) x10^3/uL MPV 9.1 (7.5-11.0) fL Gran % 74.2 H (36.0-66.0) % Immature Gran % (Auto) 0.5 H (0.00-0.4) % Nucleat RBC Rel Count 0.0 (0.00-0.1) % Eos # (Auto) 0.42 (0-0.5) x10^3/uL Immature Gran # (Auto) 0.07 H (0.00-0.03) x10^3u/L Absolute Lymphs (auto) 2.69 (1.0-4.6) x10^3/uL Absolute Monos (auto) 0.65 (0.0-1.3) x10^3/uL Absolute Nucleated RBC 0.00 (0.00-0.01) x10^3u/L Lymphocytes % 17.8 L (24.0-44.0) % Monocytes % 4.3 (0.0-12.0) % Eosinophils % 2.8 (0.00-5.0) % Basophils % 0.4 (0.0-0.4) % Absolute Granulocytes 11.24 H (1.4-6.9) x10^3/uL Basophils # 0.06 (0-0.4) x10^3/uL Sodium 138 (137-145) mmol/L Potassium 4.1 (3.5-5.1) mmol/L Chloride 107 (98-107) mmol/L Carbon Dioxide 19 L (22-30) mmol/L Anion Gap 16.3 H (5-15) MEQ/L BUN 52 H (9-20) mg/dL Creatinine 2.55 H (0.66-1.25) mg/dL Estimated GFR 25.9 ML/MIN Glucose 119 H (74-106) mg/dL Calcium 9.6 (8.4-10.2) mg/dL Total Bilirubin 0.80 (0.2-1.3) mg/dL AST 22 (17-59) U/L ALT 17 (0-50) U/L Alkaline Phosphatase 96 (38-126) U/L Creatine Kinase (55-170) U/L Serum Total Protein 8.4 H (6.3-8.2) g/dL Albumin 4.1 (3.5-5.0) g/dL Urine Color (Yellow) Urine Appearance (Clear) Urine pH (4.6-8.0) Ur Specific [place] (1.005-1.030) Urine Protein (Negative) Urine Glucose (UA) (Negative) mg/dL Urine Ketones (Negative) Urine Blood (Negative) Urine Nitrite (Negative) Urine Bilirubin (Negative) Urine Urobilinogen (0.2) mg/dL Ur Leukocyte Esterase (Negative) U Hyaline Cast (Auto) (0-2) /LPF Urine Microscopic RBC (0-5) /HPF Urine Microscopic WBC (0-5) /HPF Ur Epithelial Cells (None Seen) /HPF Urine Bacteria (None Seen) /HPF Urine Culture Reflexed (NO) Urine Opiates Level (NEGATIVE) Ur Methadone (NEGATIVE) Urine Barbiturates (NEGATIVE) Ur Phencyclidine (PCP) (NEGATIVE) Urine Amphetamine (NEGATIVE) U Benzodiazepine Level (NEGATIVE) Urine Cocaine (NEGATIVE) Urine Marijuana (THC) (NEGATIVE) Ethyl Alcohol (0-10) mg/dL Radiology Exams: Radiology Procedures Category Date Time Status CHEST 1 VIEW (PORTABLE) Routine Exams 12/07/22 13:58 Ordered HEAD WITHOUT CONTRAST [CT] Stat Exams 12/06/22 16:22 Completed KIDNEY [US] Urgent Exams 12/07/22 08:00 Completed MRI BRAIN W/O CONTRAST [MRI] Routine Exams 12/08/22 08:00 Ordered Multi-Disciplinary Progress Notes: Multi-Disciplinary Progress Notes 12/07/22 12:16 Case Management Note by Tara Martino PATIENT'S SIG OTHER REPORTS DAUGHTER IS CURRENTLY IN [place]. CALLED SON ATUL AT [phone] lm Initialized on 12/07/22 12:16 - END OF NOTE Assessment/Plan (1) CHENTE (acute kidney injury) Current Visit: Yes Status: Acute Assessment & Plan: Likely dehydrated. Creatinine improving. Continue IV fluids. F/U renal US. Code(s): N17.9 - ACUTE KIDNEY FAILURE, UNSPECIFIED (2) Metabolic encephalopathy Current Visit: Yes Status: Acute Assessment & Plan: Possibly due to dehydration/CHENTE (poor oral fluid intake), with questionable underlying dementia with decreased cognitive function. Requiring prn Ativan. May need to consider [facility] shelter if agitation is persistent. CT head negative; MRI brain ordered but due to concern about likely motion artifact and cooperativeness, will delay MRI until tomorrow (can consider premedication with Ativan). Also may need placement. Dr. Hope and CM aware. Code(s): G93.41 - METABOLIC ENCEPHALOPATHY (3) Leukocytosis Current Visit: Yes Status: Acute Assessment & Plan: No localizing symptoms or signs of infection. UA negative. F/U CXR. Code(s): D72.829 - ELEVATED WHITE BLOOD CELL COUNT, UNSPECIFIED Telemedicine Encounter - Telemedicine Encounter Telemedicine Encounter: The entirety of this encounter was performed via Telemedicine"
[2022-12-07] MEDS ORDERED: TYLENOL EXTRA STRENGTH 500 MG PO PRN (14:38)
[2022-12-07] MEDS: THERAGRAN MULTIVITAMIN PO SCH (14:50)
[2022-12-07] MEDS ORDERED: PHARMACY RENAL DOSING MC ONE (14:51)
[2022-12-07] MEDS: ZOLOFT 50 MG TABLET PO SCH (14:51)
[2022-12-07] MEDS: ZYLOPRIM 100 MG PO SCH (14:51)
[2022-12-07] MEDS: Zocor 10MG PO SCH (14:51)
[2022-12-07] MEDS: Cardizem CD PO SCH (14:52)
[2022-12-07] MEDS: Vasotec 10 MG PO SCH (14:56)
[2022-12-07] MEDS ORDERED: VENTOLIN COMMON CANISTER IH SCH (15:00)
--- NOTE | 2022-12-07 15:04 | XRAY ---
Indication: Leukocytosis. Infiltrate. Comparison: July 19, 2020 Portable apical lordotic chest demonstrates new right midlung patchy groundglass airspace disease with tiny right effusion. Left lung clear. Heart not enlarged again with tortuous descending aorta. Bony thorax intact again with osteopenia and degenerative changes.
[2022-12-07] MEDS: Ativan 2 MG/1 ML VIAL IV PRN ×2 (15:08→20:58)
[2022-12-07] MEDS ORDERED: VENTOLIN COMMON CANISTER IH PRN (16:06)
[2022-12-07] MEDS: Seroquel 25 MG PO SCH (20:59)
[2022-12-08] MEDS: Ativan 2 MG/1 ML VIAL IV PRN ×4 (02:12→20:48)
[2022-12-08 04:52] LABS: Hematocrit 44.1 % (42-50); Hemoglobin 14.3 g/dL (12.5-18.0); Mean Cell Volume 92.5 fL (78-100); Mean Corpuscular Hgb Concent. 32.4 g/dL (32-36); Mean Platelet Volume 9.1 fL (7.5-11.0); Platelet Count 237 x10^3/uL (150-450); Red Blood Count 4.77 x10^6/uL (4.1-5.6); Red Cell Distribution Width 13.1 % (11.5-14.0); White Blood Count 11.1 x10^3/uL (4.0-10.5)
[2022-12-08 04:53] LABS: ANION GAP 17.9 MEQ/L (5-15); Calcium 9.5 mg/dL (8.4-10.2); Creatinine 1 1.59 mg/dL (0.66-1.25); EST GLOMERULAR FILTRATION RATE 44.7 ML/MIN; Potassium 4.3 mmol/L (3.5-5.1)
[2022-12-08] MEDS: Sodium Chloride 0.9% 1000 ML 1,000 ML IV SCH ×2 (07:51→18:25)
[2022-12-08] MEDS ORDERED: NON-FORMULARY ITEM (Atorvastatin Calcium [Lipitor] 20 MG Tablet) PO SCH (10:00)
[2022-12-08] MEDS ORDERED: NON-FORMULARY ITEM (Multivitamin [Multivitamins] 1 EACH Capsule) PO SCH (10:00)
[2022-12-08] MEDS ORDERED: NON-FORMULARY ITEM (Sertraline Hcl [Zoloft] 25 MG Tablet) PO SCH (10:00)
[2022-12-08] MEDS: Nicoderm CQ 21 MG TOP SCH (10:07)
[2022-12-08] MEDS: ZOLOFT 50 MG TABLET PO SCH (10:07)
[2022-12-08] MEDS: Zocor 10MG PO SCH (10:08)
[2022-12-08] MEDS: ENOXAPARIN SODIUM SQ SCH (10:08)
[2022-12-08] MEDS: Cardizem CD PO SCH (10:08)
[2022-12-08] MEDS: Seroquel 25 MG PO SCH ×2 (10:08→21:44)
[2022-12-08] MEDS: Vasotec 10 MG PO SCH (10:08)
[2022-12-08] MEDS: ZYLOPRIM 100 MG PO SCH (10:08)
[2022-12-08] MEDS: THERAGRAN MULTIVITAMIN PO SCH (10:08)
[2022-12-08] MEDS: Zithromax 500 MG/ 250 ML NaCl Premix 500 MG/250 ML IVPB IV SCH (12:25)
[2022-12-08] MEDS: ROCEPHIN 1 Gm-D5w 50 ml Bag** 1 G/50 ML IVPB IV SCH (12:25)
--- NOTE | 2022-12-08 13:28 | PCM.NOTE ---
Date and Time: 12/08/22 1322 Subjective Assessment: Patient has been less agitated today. Patient is not able to offer much meaningful history at the time of my assessment. No reported pain or complaints. 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, normal mood/affect, nml cerebellar function, other (oriented only to name) Skin Exam: normal color Eye Exam: eyes nml inspection Ears, Nose, Throat Exam: normal ENT inspection Neck Exam: normal inspection, non-tender, supple, full range of motion Respiratory Exam: normal breath sounds, lungs clear Cardiovascular Exam: regular rate/rhythm, normal heart sounds Gastrointestinal/Abdomen Exam: soft, normal bowel sounds Extremity Exam: normal inspection, normal range of motion Back Exam: normal range of motion OBJECTIVE DATA Vital Signs: Vital Signs - 24 hr Temp Pulse Resp BP BP Pulse Ox 12/08/22 11:32 97.8 F 78 16 113/58 98 12/08/22 11:02 90 19 95 12/08/22 08:15 90 19 152/70 12/08/22 08:00 97.8 F 92 H 16 158/77 97 12/08/22 07:00 79 16 96 12/08/22 03:53 97.5 F 91 H 19 152/70 90 L 12/08/22 00:00 20 12/07/22 20:00 97.4 F 88 18 145/68 98 12/07/22 18:36 88 16 98 12/07/22 16:00 97.1 F 94 H 17 160/69 94 L 12/07/22 15:36 84 18 94 L Pain Assessment - Last Documented Pain Intensity 0 Intake and Output: Intake & Output 12/06/22 12/07/22 12/08/22 12/09/22 11:59 11:59 11:59 11:59 Intake Total 240 1770 100 Output Total 450 200 Balance -210 1570 100 Weight 70.9 kg 70.9 kg Lab Results: Lab Results-Last 24 Hours 12/08/22 12/08/22 Range/Units 04:26 04:26 WBC 11.1 H (4.0-10.5) x10^3/uL RBC 4.77 (4.1-5.6) x10^6/uL Hgb 14.3 (12.5-18.0) g/dL Hct 44.1 (42-50) % MCV 92.5 (78-100) fL MCH 30.0 (26-32) pg MCHC 32.4 (32-36) g/dL RDW 13.1 (11.5-14.0) % Plt Count 237 (150-450) x10^3/uL MPV 9.1 (7.5-11.0) fL Sodium 142 (137-145) mmol/L Potassium 4.3 (3.5-5.1) mmol/L Chloride 109 H (98-107) mmol/L Carbon Dioxide 19 L (22-30) mmol/L Anion Gap 17.9 H (5-15) MEQ/L BUN 31 H (9-20) mg/dL Creatinine 1.59 H (0.66-1.25) mg/dL Estimated GFR 44.7 ML/MIN Glucose 93 (74-106) mg/dL Calcium 9.5 (8.4-10.2) mg/dL Radiology Exams: Radiology Procedures Category Date Time Status CHEST 1 VIEW (PORTABLE) Routine Exams 12/07/22 13:58 Completed HEAD WITHOUT CONTRAST [CT] Stat Exams 12/06/22 16:22 Completed KIDNEY [US] Urgent Exams 12/07/22 08:00 Completed MRI BRAIN W/O CONTRAST [MRI] Routine Exams 12/08/22 08:00 Ordered Multi-Disciplinary Progress Notes: Multi-Disciplinary Progress Notes 12/08/22 12:59 Case Management Note by Tara Martino REFERRAL FAXED TO [facility] P[facility]ERWORK COMPLETED AT THIS TIME- NO LEVEL II REQUIRED. COPY PLACED ON CHART ALSO FAXED TO [facility] Initialized on 12/08/22 12:59 - END OF NOTE 12/08/22 12:57 Case Management Note by Tara Martino S/W DAUGHTER EDIE MELENDREZ AM- SHE AGREES WITH PLACEMENT AT [facility]. SHE WOULD LIKE UPDATED AT TIME OF DC, HOWEVER, D/T BEING ON VACATION SHE STATED TO CONTINUE WITH DC WHEN READY AND JUST LEAVE HER A VOICEMAIL IF SHE DOES NOT ANSWER. Initialized on 12/08/22 12:57 - END OF NOTE 12/08/22 09:12 Case Management Note by Tara Martino S/W SON ATUL- HE IS AGREEABLE TO PLACEMENT SUGGESTED BY PATIENT'S PCP. THEY WERE NOTIFIED HE COULD GO ANYWHERE FOR REHAB. THEY WOULD LIKE REFERRAL SENT TO [facility] FOLLOWED BY [facility] IF NEEDED. HE REPORTS THERE IS ALSO ANOTHER [facility]- АННА- HE WILL REACH OUT TO HIM AND DISCUSS THIS WELL. Initialized on 12/08/22 09:12 - END OF NOTE 12/07/22 15:18 Physical Therapy Note by Graeme(L#[id number]),Trudy ROSE HELD THIS DATE PER [facility] [place]. IS VERY CONFUSED AND ATIVAN DOSE HAS BEEN GIVEN. WILL ATTEMPT TOMORROW 12/08/22. Initialized on 12/07/22 15:18 - END OF NOTE Assessment/Plan (1) CHENTE (acute kidney injury) Current Visit: Yes Status: Acute Assessment & Plan: ARF improving. Continue IV fluids Code(s): N17.9 - ACUTE KIDNEY FAILURE, UNSPECIFIED (2) Metabolic encephalopathy Current Visit: Yes Status: Acute Assessment & Plan: Likely due to acute kidney injury and pneumonia. Infiltrate noted on CXR so will begin antibiotics (blood culture collected). Patient may have underlying component of congitive dysfunction but the acute altered mental status is due to these conditions. Likely needs placement; anticipate <30 day of rehab being necessary. Code(s): G93.41 - METABOLIC ENCEPHALOPATHY (3) Leukocytosis Current Visit: Yes Status: Acute Assessment & Plan: Improved. As noted, patchy infiltrate noted suggestive of underlying community acquired pneumonia. IV antibiotcs. Code(s): D72.829 - ELEVATED WHITE BLOOD CELL COUNT, UNSPECIFIED Telemedicine Encounter - Telemedicine Encounter Telemedicine Encounter: The entirety of this encounter was performed via Telemedicine"
[2022-12-09] MEDS: Sodium Chloride 0.9% 1000 ML 1,000 ML IV SCH (03:30)
[2022-12-09] MEDS: Ativan 2 MG/1 ML VIAL IV PRN (03:57)
[2022-12-09 04:38] LABS: Hematocrit 42.5 % (42-50); Mean Cell Volume 92.2 fL (78-100); Mean Corpuscular Hemoglobin 30.4 pg (26-32); Mean Corpuscular Hgb Concent. 32.9 g/dL (32-36); Mean Platelet Volume 9.3 fL (7.5-11.0); Platelet Count 202 x10^3/uL (150-450); Red Blood Count 4.61 x10^6/uL (4.1-5.6); Red Cell Distribution Width 13.2 % (11.5-14.0); White Blood Count 9.1 x10^3/uL (4.0-10.5)
[2022-12-09 05:07] LABS: ANION GAP 16.9 MEQ/L (5-15); BLOOD UREA NITROGEN 20 mg/dL (9-20); CHLORIDE 108 mmol/L (98-107); Carbon Dioxide 18 mmol/L (22-30); Creatinine 1 1.19 mg/dL (0.66-1.25); EST GLOMERULAR FILTRATION RATE > 60.0 ML/MIN; Glucose 93 mg/dL (74-106); Potassium 3.9 mmol/L (3.5-5.1); SODIUM 139 mmol/L (137-145)
[2022-12-09] MEDS: ENOXAPARIN SODIUM SQ SCH (09:01)
[2022-12-09] MEDS: ZOLOFT 50 MG TABLET PO SCH (09:01)
[2022-12-09] MEDS: ROCEPHIN 1 Gm-D5w 50 ml Bag** 1 G/50 ML IVPB IV SCH (09:01)
[2022-12-09] MEDS: Nicoderm CQ 21 MG TOP SCH (09:02)
[2022-12-09] MEDS: THERAGRAN MULTIVITAMIN PO SCH (09:02)
[2022-12-09] MEDS: Zocor 10MG PO SCH (09:02)
[2022-12-09] MEDS: Seroquel 25 MG PO SCH (09:02)
[2022-12-09] MEDS: Vasotec 10 MG PO SCH (09:02)
[2022-12-09] MEDS: Cardizem CD PO SCH (09:02)
[2022-12-09] MEDS: Zithromax 500 MG/ 250 ML NaCl Premix 500 MG/250 ML IVPB IV SCH (09:54)
[2022-12-09] MEDS ORDERED: ZYLOPRIM 100 MG PO SCH (10:00)
[2022-12-09 11:48] VITALS: BP 170/93; TEMP 98.4; O2SAT 96
--- NOTE | 2022-12-09 12:42 | PCM.NOTE ---
Date and Time: 12/09/22 1239 Subjective Assessment: Oriented to name and location today. Agitation has improved. Discussed plan of care extensively with the patient's sons at bedside. No specific complaints expressed by patient. 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, normal mood/affect, nml cerebellar function, other (oriented to name and location (not date)) Skin Exam: normal color Eye Exam: PERRL, EOMI, eyes nml inspection Ears, Nose, Throat Exam: normal ENT inspection Neck Exam: normal inspection, non-tender, supple, full range of motion Respiratory Exam: normal breath sounds, lungs clear Cardiovascular Exam: regular rate/rhythm, normal heart sounds Gastrointestinal/Abdomen Exam: soft Extremity Exam: normal inspection, normal range of motion Back Exam: normal range of motion OBJECTIVE DATA Vital Signs: Vital Signs - 24 hr Temp Pulse Resp BP BP BP Pulse Ox 12/09/22 11:46 98.4 F 97 H 16 170/93 96 12/09/22 08:00 97.7 F 85 20 192/103 93 L 12/09/22 04:00 98.9 F 91 H 19 178/87 95 12/09/22 03:57 91 H 19 178/87 12/09/22 00:00 16 12/08/22 20:48 86 16 182/88 12/08/22 19:49 97.7 F 91 H 19 147/96 93 L 12/08/22 18:46 74 94 L 12/08/22 15:44 97.6 F 67 16 138/69 99 Pain Assessment - Last Documented Pain Intensity 0 Intake and Output: Intake & Output 12/07/22 12/08/22 12/09/22 12/10/22 11:59 11:59 11:59 11:59 Intake Total 240 1770 4178 Output Total 450 200 200 Balance -210 1570 3978 Weight 70.9 kg 66.4 kg Lab Results: Lab Results-Last 24 Hours 12/09/22 12/09/22 Range/Units 04:25 04:25 WBC 9.1 (4.0-10.5) x10^3/uL RBC 4.61 (4.1-5.6) x10^6/uL Hgb 14.0 (12.5-18.0) g/dL Hct 42.5 (42-50) % MCV 92.2 (78-100) fL MCH 30.4 (26-32) pg MCHC 32.9 (32-36) g/dL RDW 13.2 (11.5-14.0) % Plt Count 202 (150-450) x10^3/uL MPV 9.3 (7.5-11.0) fL Sodium 139 (137-145) mmol/L Potassium 3.9 (3.5-5.1) mmol/L Chloride 108 H (98-107) mmol/L Carbon Dioxide 18 L (22-30) mmol/L Anion Gap 16.9 H (5-15) MEQ/L BUN 20 (9-20) mg/dL Creatinine 1.19 (0.66-1.25) mg/dL Estimated GFR > 60.0 ML/MIN Glucose 93 (74-106) mg/dL Calcium 9.0 (8.4-10.2) mg/dL Radiology Exams: Radiology Procedures Category Date Time Status CHEST 1 VIEW (PORTABLE) Routine Exams 12/07/22 13:58 Completed Multi-Disciplinary Progress Notes: Multi-Disciplinary Progress Notes 12/09/22 11:02 Case Management Note by Tara Martino S/WE SONS PAT AND АННА- THEY AARE AWARE [facility] HAVE DECLINED HIM- THEY WOULD LIKE REFERRALS SENT TO [facility] [place] ([place] THEN IF NEEDED) REFERRALS CALLED AND FAXED TO [facility] AND [facility] Initialized on 12/09/22 11:02 - END OF NOTE 12/09/22 10:47 Case Management Note by Tara Martino- DECLINED PATIENT WELL. REFERRAL SENT TO [facility] ( 3RD CHOICE PER JAMES) Initialized on 12/09/22 10:47 - END OF NOTE 12/09/22 09:17 Case Management Note by Tara Martino DECLINED PATIENT- REFERRAL CALLED AND SENT TO [facility] PER FAMILY REQUEST Initialized on 12/09/22 09:17 - END OF NOTE 12/08/22 14:19 Physical Therapy Note by Graeme(L#[id number]),Trudy ATTEMPTED TO COMPLETE P.T. EVAL X 2 TODAY AND PT. HAD ATIVAN AGAIN AND IS [facility] [employer]. ATIVAN GIVEN THIS AFTERNOON SO THAT PT. COULD GET THROUGH MRI. WILL ATTEMPT AGAIN TOMORROW. Initialized on 12/08/22 14:19 - END OF NOTE 12/08/22 12:59 Case Management Note by Tara Martino REFERRAL FA[facility]ED TO [facility] P[facility]ERWORK COMPLETED AT THIS TIME- NO LEVEL II REQUIRED. COPY PLACED ON CHART ALSO FAXED TO [facility] Initialized on 12/08/22 12:59 - END OF NOTE 12/08/22 12:57 Case Management Note by Tara Martino S/W DAUGHTER EDIE THIS AM- SHE AGREES WITH PLACEMENT AT [facility]. SHE WOULD LIKE UPDATED AT TIME OF DC, HOWEVER, D/T BEING ON VACATION SHE STATED TO CONTINUE WITH DC WHEN READY AND JUST LEAVE HER A VOICEMAIL IF SHE DOES NOT ANSWER. Initialized on 12/08/22 12:57 - END OF NOTE Assessment/Plan (1) CHENTE (acute kidney injury) Current Visit: Yes Status: Acute Assessment & Plan: Creatinine improved. Code(s): N17.9 - ACUTE KIDNEY FAILURE, UNSPECIFIED (2) Metabolic encephalopathy Current Visit: Yes Status: Acute Assessment & Plan: On Seroquel with decreased agitation. Mental status will hopefully clear as renal failure has resolved and the pneumonia is being treated. CM working on placement options. Code(s): G93.41 - METABOLIC ENCEPHALOPATHY (3) Leukocytosis Current Visit: Yes Status: Acute Assessment & Plan: Resolved. Code(s): D72.829 - ELEVATED WHITE BLOOD CELL COUNT, UNSPECIFIED Telemedicine Encounter - Telemedicine Encounter Telemedicine Encounter: The entirety of this encounter was performed via Telemedicine"
[2022-12-09 13:05] VITALS: PULSE 77; RESP 18
--- NOTE | 2022-12-09 14:46 | PCM.DS ---
Discharge Summary Date of Admission: 12/06/22 20:27 Date of Discharge: 12/09/22 Admitting Physician: LANA COX DO Primary Care Provider: ROMAN MCKEON Allergies Allergies No Known Drug Allergies Allergy (Verified 12/06/22 16:12) Hospital Summary - Hospital Course Hospital Course: Received IV fluids with improvement in creatinine. CXR demonstrated evidence of infiltrate, so antibiotics initiated. Seroquel trial started, with good results thus far (decreased agitation). Placement has been secured for the patient at this time. - Vitals & Intake/Output Vital Signs: Vital Signs Temperature 98.4 F 12/09/22 11:46 Pulse Rate 77 12/09/22 13:02 Respiratory Rate 18 12/09/22 13:02 Blood Pressure 170/93 12/09/22 11:46 O2 Sat by Pulse Oximetry 96 12/09/22 13:02 Intake & Output: Intake & Output 12/07/22 12/08/22 12/09/22 12/10/22 11:59 11:59 11:59 11:59 Intake Total 240 1770 4178 120 Output Total 450 200 200 250 Balance -210 1570 3978 -130 Weight 70.9 kg 66.4 kg - Lab Result Diagrams: 12/09/22 04:25 12/09/22 04:25 Lab Results-Last 24 Hrs: Lab Results-Last 24 Hours 12/09/22 12/09/22 Range/Units 04:25 04:25 WBC 9.1 (4.0-10.5) x10^3/uL RBC 4.61 (4.1-5.6) x10^6/uL Hgb 14.0 (12.5-18.0) g/dL Hct 42.5 (42-50) % MCV 92.2 (78-100) fL MCH 30.4 (26-32) pg MCHC 32.9 (32-36) g/dL RDW 13.2 (11.5-14.0) % Plt Count 202 (150-450) x10^3/uL MPV 9.3 (7.5-11.0) fL Sodium 139 (137-145) mmol/L Potassium 3.9 (3.5-5.1) mmol/L Chloride 108 H (98-107) mmol/L Carbon Dioxide 18 L (22-30) mmol/L Anion Gap 16.9 H (5-15) MEQ/L BUN 20 (9-20) mg/dL Creatinine 1.19 (0.66-1.25) mg/dL Estimated GFR > 60.0 ML/MIN Glucose 93 (74-106) mg/dL Calcium 9.0 (8.4-10.2) mg/dL - Radiology Exams Ordered Rad Exams-Entire Visit: Radiology Procedures Category Date Time Status CHEST 1 VIEW (PORTABLE) Routine Exams 12/07/22 13:58 Completed - Procedures and Test Procedures and Tests throughout Hospitalization: Therapy Orders & Screens 12/06/22 22:44 Smoking Cessation Education ONCE Comment: Diagnosis: CHENTE, eratic driving, pulled over by police. Smoking Status: Current every day smoker How long have you smoked: 40 years Have you smoked in the past 12 months: Yes Approximately how many cigarettes per day: 1.5 pac ks per day Do you dip or chew tobacco: No 12/07/22 12:40 PT Eval & Treat (MD Order) ONCE Reason for Eval:: debility, falls Diagnosis: CHENTE, eratic driving, pulled over by police. 12/08/22 07:00 Respiratory Therapy Assessment DAILY Comment: Diagnosis: CHENTE, eratic driving, pulled over by police. 12/08/22 11:02 Respiratory Therapy Consult ROUTINE Comment: Reason For Exam: Diagnosis: CHENTE, eratic driving, pulled over by police. 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 tested, normal mood/affect, nml cerebellar function, other (oriented to name and location) Eye Exam: PERRL, EOMI, eyes nml inspection Ears, Nose, Throat Exam: normal ENT inspection Neck Exam: normal inspection, non-tender, supple, full range of motion Respiratory Exam: normal breath sounds, lungs clear Cardiovascular Exam: regular rate/rhythm, normal heart sounds Gastrointestinal/Abdomen Exam: soft, normal bowel sounds Back Exam: normal range of motion Extremity Exam: normal inspection, normal range of motion Skin Exam: normal color Final Diagnosis/Problem List - Final Discharge Diagnosis/Problem (1) CHENTE (acute kidney injury) Current Visit: Yes Status: Acute Assessment & Plan: Improved Code(s): N17.9 - ACUTE KIDNEY FAILURE, UNSPECIFIED (2) Metabolic encephalopathy Current Visit: Yes Status: Acute Assessment & Plan: Improved. Trial of seroquel. Code(s): G93.41 - METABOLIC ENCEPHALOPATHY (3) Leukocytosis Current Visit: Yes Status: Acute Assessment & Plan: Resolved. On antibiotics for pneumonia treatment. Code(s): D72.829 - ELEVATED WHITE BLOOD CELL COUNT, UNSPECIFIED Telemedicine Encounter - Telemedicine Encounter Telemedicine Encounter: The entirety of this encounter was performed via Telemedicine" - Discharge Disposition: DC TO ANY "OTHER" [facility] Condition: Stable Prescriptions: New Cefdinir 300 mg PO BID 5 Days #10 cap L. Acidophilus/L.bulgaricus [Lactobacillus Tablet] 1 each PO DAILY 10 Days #10 tablet Quetiapine Fumarate 25 mg [Seroquel 25 MG] 25 mg PO BID 30 Days #60 tablet Azithromycin 250 mg [Zithromax 250 MG TABLET] 250 mg PO DAILY 3 Days #3 tablet Continue Enalapril Maleate 10 mg [Vasotec 10 MG] 20 mg PO DAILY Triamterene/Hydrochlorothiazid [Triamterene-Hctz 75-50 mg Tab] 1 each PO DAILY Atorvastatin Calcium [Lipitor] 20 mg PO DAILY Acetaminophen 500 mg [Tylenol Extra Strength 500 mg] 1,000 mg PO UD PRN PRN Reason: Pain Multivitamin [Multivitamins] 1 each PO DAILY Allopurinol 100 mg [Zyloprim 100 mg] 100 mg PO DAILY Diltiazem HCl [Cartia Xt] 180 mg PO DAILY Indomethacin 25 mg [Indocin 25 MG] 25 mg PO BID Lisinopril 10 mg [Zestril 10 MG] 10 mg PO DAILY Sertraline HCl [Zoloft] 25 mg PO DAILY Albuterol Sulfate [Albuterol Sulfate Hfa] 8.5 gm IH Q4H PRN PRN Reason: wheezing Instructions: Dehydration, Adult (DC) Additional Instructions: [facility] ORDERS: ADMIT TO HALF-WAY CARE RENAL DIET PT/OT EVAL AND TREAT SEE ATTACHED MED LIST Follow up with: ROMAN MCKEON MD [Primary Care Provider] -
== END 2022-12-09 15:43 | DRG 682 ==
LOC: ED 16:07 → MED SURG 20:27 → OBSVTOIN 20:27
PROVIDERS: ADMIT Internal Medicine; ATTEND Internal Medicine
DX: N17.9 Acute kidney failure, unspecified (principal); G93.41 Metabolic encephalopathy; D72.829 Elevated white blood cell count, unspecified; I10 Essential (primary) hypertension; E78.5 Hyperlipidemia, unspecified; R41.82 Altered mental status, unspecified; M10.9 Gout, unspecified; Z85.828 Personal history of other malignant neoplasm of skin; Z72.0 Tobacco use; Z79.899 Other long term (current) drug therapy; Z20.828 Contact with and (suspected) exposure to other viral communicable diseases
CPT/HCPCS: 36000; 36415; 70450; 71045; 76770; 80048; 80053; 80307; 81001; 82077; 82550; 85025; 85027; 87040; 93005; 93041; 94640; 94760; 97161; 99285; Q3014; J0456; J0696; J1650; J2060; J2405; A9270-GY